=== PATIENT | male | born 1990 | race Caucasian/White ===

== ENCOUNTER 2025-05-27 17:08 | Emergency (ER) | payer SELFPAY ==
[2025-05-27 17:25] VITALS: BP 109/61; PULSE 106; RESP 20; TEMP 37.3; O2SAT 100
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
== END 2025-05-27 18:00 | disposition left against medical advice (07) ==
DX: L03.116 Cellulitis of left lower limb (principal)
CPT/HCPCS: 99203; G0463